=== PATIENT | female | born 1945 | race Caucasian/White ===

== ENCOUNTER 2022-03-20 20:17 | Inpatient (IN) | payer OTHER ==
[~2022-03-20] VITALS: Ht 165.1 cm; Wt 71.2 kg
[2022-03-20 20:45] VITALS: BP_SYST 168
[2022-03-20 22:54] LABS: BILIRUBIN,URINE NEGATIVE (NEGATIVE); BLOOD, URINE 1+ (NEGATIVE); COLOR,URINE YELLOW (YELLOW); GLUCOSE,URINE NEGATIVE (NEGATIVE); KETONES,URINE NEGATIVE (NEGATIVE); LEUKOCYTE ESTERASE ,URINE TRACE (NEGATIVE); NITRITE, URINE NEGATIVE (NEGATIVE); PROTEIN URINE NEGATIVE (NEGATIVE); UROBILINOGEN,URINE 0.2 (0.2-1.0)
[2022-03-20 23:23] LABS: BASOPHILS % (AUTO) 0.3 % (0.0-2.0); EOSINOPHILS % (AUTO) 0.1 % (0.0-4.0); HEMATOCRIT 35.4 % (36-48); HEMOGLOBIN 12.2 g/dL (12.0-16.0); LYMPHOCYTES # (AUTO) 0.4 K/uL (1.0-5.5); LYMPHOCYTES % (AUTO) 10.3 % (20.5-51.5); MEAN CORPUSCULAR HEMOGLOBIN 31 pg (27-31); MEAN CORPUSCULAR HGB CONC 35 % (32-36); MEAN CORPUSCULAR VOLUME 91 fL (79.0-98.0); MONOCYTES # (AUTO) 0.4 K/uL (0.0-1.0); MONOCYTES % (AUTO) 10.3 % (1.7-9.3); NEUTROPHILS # (AUTO) 3.3 K/uL (1.8-7.7); PLATELET COUNT (AUTO) 126 K/uL (130-430); RED BLOOD CELL COUNT(AUTO) 3.91 MIL/uL (4.2-6.2); WHITE BLOOD COUNT (AUTO) 4.2 K/uL (4.8-10.8)
[2022-03-20 23:24] LABS: ANION GAP 5 (5-15); CHLORIDE 100 mmol/L (98-107); GLUCOSE 102 mg/dL (70-99); UREA NITROGEN, BLOOD 15 mg/dL (8-21)
[2022-03-20 23:26] LABS: CLARITY/URINE HAZY (CLEAR)
[2022-03-20 23:31] LABS: ALANINE AMINOTRANSFERASE 15 U/L (12-78); ALBUMIN 3.9 g/dL (3.4-4.8); ASPARTATE AMINOTRANSFERASE 29 U/L (10-37); TOTAL BILIRUBIN 0.7 mg/dL (0.0-1.0)
[2022-03-20 23:35] LABS: BACTERIA,URINE RARE /HPF (None Seen)
[2022-03-21] MEDS ORDERED: NS 500 ML IV ONE (00:30)
[2022-03-21] MEDS ORDERED: cefTRIAXone 1 GM IVPB PREMIX 50 ML IV ONE ×2 (00:30→21:43)
[2022-03-21] MEDS ORDERED: IPRATROPIUM/ALBUTEROL SULFATE 3 ML AMPUL.NEB (DUONEB) INH PRN (00:45)
[2022-03-21] MEDS ORDERED: DONE5TAB3 PO (01:21)
[2022-03-21] MEDS ORDERED: ACET-2439 PO (01:21)
[2022-03-21] MEDS ORDERED: MEMA10TA PO (01:21)
[2022-03-21] MEDS ORDERED: ESCI20TA PO (01:21)
[2022-03-21] MEDS ORDERED: MEMA5TAB PO (01:21)
[2022-03-21] MEDS ORDERED: FAMO-132 PO (01:21)
[2022-03-21] MEDS: LR 1,000 ML IV SCH ×2 (08:18→10:46)
[2022-03-21 10:20] VITALS: BP_SYST 152
[2022-03-21] MEDS ORDERED: ENOXAPARIN SODIUM 40 MG/0.4 ML SYRINGE SUBCUT ONE (10:45)
[2022-03-21 10:48] VITALS: BP_SYST 95
[2022-03-21] MEDS ORDERED: ASCORBIC ACID 500 MG TABLET PO ONE (11:00)
[2022-03-21] MEDS ORDERED: ACETAMINOPHEN 325 MG TABLET PO PRN (11:00)
[2022-03-21] MEDS ORDERED: FAMOTIDINE 20 MG TABLET PO ONE (11:00)
[2022-03-21] MEDS ORDERED: CHOLECALCIFEROL (VITAMIN D3) 2,000 UNIT TABLET PO ONE (11:00)
[2022-03-21] MEDS ORDERED: MAGNESIUM OXIDE 400 MG TABLET PO ONE (11:00)
[2022-03-21] MEDS ORDERED: CITALOPRAM HYDROBROMIDE 20 MG TABLET PO ONE (11:15)
[2022-03-21] MEDS ORDERED: cloNIDine HCL 0.1 MG TABLET PO PRN (11:15)
[2022-03-21] MEDS ORDERED: MEMANTINE HCL 5 MG TABLET PO ONE (11:15)
[2022-03-21 15:20] VITALS: BP_SYST 108
[2022-03-21 20:00] VITALS: BP_SYST 127
[2022-03-21] MEDS: MEMANTINE HCL 5 MG TABLET PO SCH (21:23)
[2022-03-21] MEDS: ASCORBIC ACID 500 MG TABLET PO SCH (21:23)
[2022-03-21] MEDS: CHOLECALCIFEROL (VITAMIN D3) 2,000 UNIT TABLET PO SCH (21:23)
[2022-03-21] MEDS: DONEPEZIL HCL 5 MG TABLET (ARICEPT) PO SCH (21:24)
[2022-03-21] MEDS: MAGNESIUM OXIDE 400 MG TABLET PO SCH (21:25)
[2022-03-21] MEDS ORDERED: cefTRIAXone 1 GM IVPB PREMIX 50 ML IV SCH (22:00)
[2022-03-22] VITALS: BP_SYST 125
[2022-03-22] MEDS: ACETAMINOPHEN 325 MG TABLET PO PRN ×2 (00:40→14:24)
[2022-03-22] MEDS: LR 1,000 ML IV SCH ×2 (03:26→20:06)
[2022-03-22 06:00] VITALS: BP_SYST 125
[2022-03-22 07:09] LABS: ANION GAP 9 (5-15); CALCIUM 8.8 mg/dL (8.4-11.0); CHLORIDE 102 mmol/L (98-107); CREATININE 0.77 mg/dL (0.55-1.30); GLUCOSE 96 mg/dL (70-99); UREA NITROGEN, BLOOD 12 mg/dL (8-21)
[2022-03-22 07:13] LABS: BASOPHILS % (AUTO) 0.9 % (0.0-2.0); EOSINOPHILS % (AUTO) 1.1 % (0.0-4.0); HEMATOCRIT 36.6 % (36-48); HEMOGLOBIN 12.7 g/dL (12.0-16.0); LYMPHOCYTES # (AUTO) 0.7 K/uL (1.0-5.5); LYMPHOCYTES % (AUTO) 29.4 % (20.5-51.5); MEAN CORPUSCULAR HEMOGLOBIN 31 pg (27-31); MEAN CORPUSCULAR HGB CONC 35 % (32-36); MEAN CORPUSCULAR VOLUME 90 fL (79.0-98.0); MONOCYTES # (AUTO) 0.4 K/uL (0.0-1.0); MONOCYTES % (AUTO) 15.6 % (1.7-9.3); NEUTROPHILS # (AUTO) 1.3 K/uL (1.8-7.7); PLATELET COUNT (AUTO) 120 K/uL (130-430); RED BLOOD CELL COUNT(AUTO) 4.08 MIL/uL (4.2-6.2); RED CELL DISTRIBUTION WIDTH 12.8 % (9.0-15.0); WHITE BLOOD COUNT (AUTO) 2.4 K/uL (4.8-10.8)
[2022-03-22] MEDS: ENOXAPARIN SODIUM 40 MG/0.4 ML SYRINGE SUBCUT SCH (10:13)
[2022-03-22] MEDS: CHOLECALCIFEROL (VITAMIN D3) 2,000 UNIT TABLET PO SCH ×2 (10:14→21:06)
[2022-03-22] MEDS: MEMANTINE HCL 5 MG TABLET PO SCH ×2 (10:14→21:09)
[2022-03-22] MEDS: MAGNESIUM OXIDE 400 MG TABLET PO SCH ×2 (10:16→21:05)
[2022-03-22] MEDS: FAMOTIDINE 20 MG TABLET PO SCH (10:17)
[2022-03-22] MEDS: CITALOPRAM HYDROBROMIDE 20 MG TABLET PO SCH (10:17)
[2022-03-22] MEDS: ASCORBIC ACID 500 MG TABLET PO SCH ×2 (10:17→21:09)
[2022-03-22 11:32] VITALS: BP_SYST 143
[2022-03-22 16:32] VITALS: BP_SYST 125
[2022-03-22 20:00] VITALS: BP_SYST 143
[2022-03-22] MEDS ORDERED: cefTRIAXone 1 GM IVPB PREMIX 50 ML IV SCH (21:00)
[2022-03-22] MEDS: DONEPEZIL HCL 5 MG TABLET (ARICEPT) PO SCH (21:05)
[2022-03-23 01:40] VITALS: BP_SYST 162
[2022-03-23] MEDS: LR 1,000 ML IV SCH (06:43)
[2022-03-23] MEDS ORDERED: VITD2000 PO (10:22)
[2022-03-23] MEDS ORDERED: CIPR250T4 PO (10:23)
[2022-03-23] MEDS ORDERED: cloNIDine HCL 0.1 MG TABLET PO PRN (10:30)
[2022-03-23] MEDS: CHOLECALCIFEROL (VITAMIN D3) 2,000 UNIT TABLET PO SCH (10:51)
[2022-03-23] MEDS: MEMANTINE HCL 5 MG TABLET PO SCH (10:52)
[2022-03-23] MEDS: MAGNESIUM OXIDE 400 MG TABLET PO SCH (10:52)
[2022-03-23] MEDS: CITALOPRAM HYDROBROMIDE 20 MG TABLET PO SCH (10:52)
[2022-03-23] MEDS: FAMOTIDINE 20 MG TABLET PO SCH (10:52)
[2022-03-23] MEDS: ENOXAPARIN SODIUM 40 MG/0.4 ML SYRINGE SUBCUT SCH (10:54)
[2022-03-23] MEDS ORDERED: L.RH1CAP PO (11:30)
[2022-03-23 12:25] VITALS: BP_SYST 149
[2022-03-23 13:43] VITALS: BP_SYST 149
== END 2022-03-23 14:23 | disposition home or self-care (01) | DRG 871 ==
LOC: SED 20:17 → STU 03-21 00:36 → SMU 03-22 13:04
PROVIDERS: ADMIT Internal Medicine; ATTEND Internal Medicine
DX: A41.9 Sepsis, unspecified organism (principal); U07.1 COVID-19; N39.0 Urinary tract infection, site not specified; F03.90 Unspecified dementia, unspecified severity, without behavioral disturbance, psychotic disturbance, mood disturbance, and anxiety; Z79.1 Long term (current) use of non-steroidal anti-inflammatories (NSAID); Z79.899 Other long term (current) drug therapy
CPT/HCPCS: 36415; 71045; 80048; 80053; 81000; 83880; 84484; 85025; 87040; 87086; 93005; 94760; 96365; 97110-GP; 97112-GP; 97163-GP; 97530-GP; 99285; G0378; J0696; J1650; J7040; J7120